=== PATIENT | female | born 1985 | race Caucasian/White ===

== ENCOUNTER 2016-07-18 10:28 | Emergency (ER) | payer MEDICAID ==
[~2016-07-18] VITALS: Wt 62.5 kg
[2016-07-18 11:42] LABS: URINE BLOOD (Dip) POC 3+ (NEGATIVE)
--- NOTE | 2016-07-18 12:19 | RADRPT ---
PROCEDURE: US Pelvis. CLINICAL INDICATION: Pain. TECHNIQUE: Multiple transabdominal and transvaginal sonographic images of the pelvis were obtained . COMPARISON: None. FINDINGS: The uterus is anteverted in position and measures 9.4 x 4.9 x 6.0 cm (144 cc). The endometrial comp aminata is homogeneous in echogenicity and measures approximately 10 mm in thickness. An intrauterine d evice is in place within the upper aspect of the endometrial cavity. Small Nabothian cysts are seen within the cervix. There is no free pelvic fluid. The right and left ovaries are symmetric in size with Doppler flow. The right ovary measures 3.0 x 2.0 x 2.5 cm (8 cc). The left ovary measures 3.0 x 1.9 x 1.9 cm (5.8 cc). IMPRESSION: Intrauterine device in satisfactory position within the endometrial cavity. Otherwise, unremarkable pelvic ultrasound. RPTAT: QQ .Josephine Llanos MD, MD Date Time Electronically viewed and signed by .Josephine Llanos MD, on 07/18/2016 12:19 .T/
[2016-07-18] MEDS ORDERED: METR500T PO (12:36)
[2016-07-18] MEDS ORDERED: NITR-58 PO (12:37)
--- NOTE | 2016-07-18 12:42 | ERD ---
ER Documentation Chief Complaint Date/Time DATE: 07/18/16 TIME: 12:39 Chief Complaint LOWER ABD PAIN, NAUSEA,BLOOD IN URINE HPI This is a 31-year-old female presents to the ER with pelvic pain that started 2 days ago. Patient states that pelvic pain is throbbing in quality. It is nonradiating. She does admit to urinary frequency and dysuria. She also admits to that she like yellow vaginal discharge. Patient is currently sexually active in a monogamous relationship. Patient uses protection. Patient is worried that her IUD is placed incorrectly. She denies any fevers or chills. She denies any other abdominal pain. She denies nausea vomiting or diarrhea. ROS 12 point review of systems was done, all negative except per HPI. Medications Home Meds Active Scripts Nitrofurantoin Monohyd Macrocr* (Macrobid*) 100 Mg Capsr, 100 MG PO BID for 7 Days, CAP Prov:ERIKA ARIZA 07/18/16 Metronidazole* (Flagyl*) 500 Mg Tablet, 500 MG PO TID for 7 Days, TAB Prov:ERIKA ARIZA 07/18/16 Physical Exam Vitals Vital Signs Date Time Temp Pulse Resp B/P Pulse Ox O2 Delivery O2 Flow Rate FiO2 07/18/16 10:31 99.9 78 18 132/85 98 Physical Exam GENERAL: The patient is well developed and appropriate for usual state of health , in no apparent distress. HEENT: Atraumatic. CHEST: Clear to auscultation bilaterally. There are no rales, wheezes or rhonchi. HEART: Regular rate and rhythm. No murmurs, clicks, rubs or gallops. ABDOMEN: Soft, nontender and nondistended. Good bowel sounds. No rebound or guarding. No gross peritonitis. No gross organomegaly or masses. No Somers sign or McBurney point tenderness. NEURO: Alert and oriented. SKIN: The skin is warm and dry. Results 24 hrs Laboratory Tests Test 07/18/16 10:46 Bedside Urine Blood 3+ Bedside Urine Glucose (UA) Negative Bedside Urine Ketones (LAB) Negative Bedside Urine Leukocyte Esterase (L 1+ Bedside Urine Nitrite (LAB) Negative Bedside Urine Protein (LAB) Negative Bedside Urine pH (LAB) 5.5 Procedures/MDM Differential diagnosis includes but is not limited to; UTI, ovarian cyst, ovarian torsion, tubo-ovarian abscess, pyelonephritis, kidney stone, bacterial vaginosis, UTI. This is a 31-year-old female presents to the ER with pain. At this time IUD is placed correctly. Patient did have evidence of urinary tract infection on urine dip. She also has a history consistent with bacterial vaginosis. Suspicion for pelvic inflammatory disease is low. Suspicion for tubo-ovarian abscess is low. She is afebrile and well-appearing. She does not have a history of previous STI's and has a monogamous relationship using protection. Patient's abdominal exam is benign. I doubt acute abdomen. Patient be sent home with metronidazole and with Macrobid. Patient needs to follow-up with her primary care doctor within 1-2 days return to ER sooner if symptoms worsen. My medical decision making was shared with the patient understands and agrees with plan Departure Diagnosis: Primary Impression: UTI (urinary tract infection) Additional Impression: Bacterial vaginosis Condition: Stable Patient Instructions: Understanding Urinary Tract Infections (UTIs) Additional Instructions: Llame al doctor MAANA y britt sam SAI PARA DENTRO DE 1-2 PALMER.Dgale a la secretaria que nosotros le instruimos hacer esta sai.Avise o llame si mittal condicin se empeora antes de la sai. Regresa aqui si peor o no mejor. ERIKA ARIZA Jul 18, 2016 12:42
== END 2016-07-18 13:01 | disposition home or self-care (01) ==
LOC: FTE 10:28
DX: N39.0 Urinary tract infection, site not specified (principal); N76.0 Acute vaginitis
CPT/HCPCS: 76830; 76856; 81003; Z7502

== ENCOUNTER 2016-12-13 16:00 | Emergency (ER) | payer MEDICAID ==
[~2016-12-13] VITALS: Ht 167.6 cm; Wt 62.0 kg
[~2016-12-13 16:00] MED LIST: METR500T PO; NITR-58 PO
[2016-12-13 16:07] VITALS: Ht 167.6 cm; Wt 62.0 kg
[2016-12-13] MEDS ORDERED: KETOROLAC 60 MG INJ IM STA (17:18)
[2016-12-13] MEDS ORDERED: FIORICET PO (18:35)
--- NOTE | 2016-12-13 19:04 | ERD ---
ER Documentation Chief Complaint Date/Time DATE: 12/13/16 TIME: 19:01 Chief Complaint Complains of severe headache x 3 days HPI 31-year-old female patient with no sniffing a past medical history presents to the ED complaining of a headache that started 3 days ago. Reports that it is predominantly in her right side of the head. States that she feels that she needs glasses. Denies any chest pain, shortness of breath, nausea, vomiting, dizziness, numbness or tingling. ROS All systems reviewed and are negative except as per history of present illness. Medications Home Meds Active Scripts Acetamin/Butalbital/Caffeine* (Fioricet*) [id number] Tab, 1 TAB PO Q6H Y for PAIN, #30 TAB Prov:SAY ARAUJO PA-C 12/13/16 Nitrofurantoin Monohyd Macrocr* (Macrobid*) 100 Mg Capsr, 100 MG PO BID for 7 Days, CAP Prov:ERIKA ARIZA C 07/18/16 Metronidazole* (Flagyl*) 500 Mg Tablet, 500 MG PO TID for 7 Days, TAB Prov:TO,ERIKA C 07/18/16 Allergies Allergies: Coded Allergies: No Known Allergy (Unverified , 12/13/16) PMhx/Soc Hx Alcohol Use: No Hx Substance Use: No Hx Tobacco Use: No Smoking Status: Never smoker Physical Exam Vitals Vital Signs Date Time Temp Pulse Resp B/P Pulse Ox O2 Delivery O2 Flow Rate FiO2 12/13/16 16:07 98.6 68 20 131/99 100 Physical Exam Const: [id number], well-nourished. In no acute distress. Head: Atraumatic, normocephalic Eyes: Normal Conjunctiva without injection. No purulent discharge. PERRLA. EOMI ENT: Normal external ear. Ear canal without erythema. Tympanic membrane pearly cohen without effusion or bulging. Nasal canal clear with normal turbinates. Moist oropharynx without tonsillar exudates. Non-erythematous pharynx. Uvula midline. No drooling. No trismus. Neck: No cervical midline tenderness. Full range of motion. No meningismus. No cervical lymphadenopathy. No JVD. Resp: Clear to auscultation bilaterally. No wheezing, rhonchi, rales, or crackles. No accessory muscle use. No retractions. Cardio: Regular rate and rhythm. No murmurs, rubs or gallops. Abd: Soft, non tender, non distended. Normal bowel sounds. No palpable masses. No rebound tenderness. No guarding. Negative McBurney's Point. Negative Somers's Sign. Skin: Normal skin turgor. No petechiae or rashes Back: No midline tenderness. No CVA tenderness. Ext: No cyanosis, or edema. Distal pulses intact bilaterally. Neur: Awake and alert. Normal gait. Normal coordination. Cranial Nerves II- VII intact. Normal finger to nose. Muscle strength 5/5. Sensation intact. Psych: Normal Mood and Affect Results 24 hrs Current Medications Medications (Trade) Dose Ordered Sig/Norma Route PRN Reason Start Time Stop Time Status Last Admin Dose Admin Ketorolac Tromethamine (Toradol) 60 mg ONCE STAT IM 12/13/16 17:18 12/13/16 17:19 DC 12/13/16 17:34 Procedures/MDM 31-year-old female patient with no significant past medical history presents to the ED complaining of headache that started days ago. Patient is afebrile and nontoxic-appearing. Patient has normal vital signs. Patient was given Toradol here in the ED with improvement of her symptoms. Urine is negative. Patient likely has a tension versus migraine headache. Low suspicion for intracranial bleed, subarachnoid hemorrhage, meningitis, TIA, stroke, epidural hematoma, subdural hematoma, or other emergent conditions. Discharge medications: Fioricet Follow up with primary care physician in 1-2 days. Instructed patient to return to the ED sooner for any worsening symptoms. Patient's questions were answered. Patient understood and agreed with discharge plan. Patient discharged stable. Departure Diagnosis: Primary Impression: Headache Headache type: unspecified Headache chronicity pattern: unspecified pattern Intractability: not intractable Qualified Code: R51 - Nonintractable headache, unspecified chronicity pattern, unspecified headache type Condition: Stable Patient Instructions: Self-Care for Headaches, Headache, Unspecified Referrals: COMMUNITY CLINICS YOU HAVE RECEIVED A MEDICAL SCREENING EXAM AND THE RESULTS INDICATE THAT YOU DO NOT HAVE A CONDITION THAT REQUIRES URGENT TREATMENT IN THE EMERGENCY DEPARTMENT. FURTHER EVALUATION AND TREATMENT OF YOUR CONDITION CAN WAIT UNTIL YOU ARE SEEN IN YOUR DOCTORS OFFICE WITHIN THE NEXT 1-2 DAYS. IT IS YOUR RESPONSIBILITY TO MAKE AN APPOINTMENT FOR FOLOW-UP CARE. IF YOU HAVE A PRIMARY DOCTOR --you should call your primary doctor and schedule an appointment IF YOU DO NOT HAVE A PRIMARY DOCTOR YOU CAN CALL OUR PHYSICIAN REFERRAL HOTLINE AT IF YOU CAN NOT AFFORD TO SEE A PHYSICIAN YOU CAN CHOSE FROM THE FOLLOWING [facility] [address] [facility] [address] [facility] [address] [facility] [address] [facility]. [facility] [address] [facility]. [facility] [address] [facility]. [facility] YOU HAVE RECEIVED A MEDICAL SCREENING EXAM AND THE RESULTS INDICATE THAT YOU DO NOT HAVE A CONDITION THAT REQUIRES URGENT TREATMENT IN THE EMERGENCY DEPARTMENT. FURTHER EVALUATION AND TREATMENT OF YOUR CONDITION CAN WAIT UNTIL YOU ARE SEEN IN YOUR DOCTORS OFFICE WITHIN THE NEXT 1-2 DAYS. IT IS YOUR RESPONSIBILITY TO MAKE AN APPOINTMENT FOR FOLOW-UP CARE. IF YOU HAVE A PRIMARY DOCTOR --you should call your primary doctor and schedule and appointment IF YOU DO NOT HAVE A PRIMARY DOCTOR YOU CAN CALL OUR PHYSICIAN REFERRAL HOTLINE AT . IF YOU CAN NOT AFFORD TO SEE A PHYSICIAN YOU CAN CHOSE FROM THE FOLLOWING [facility]: [facility] [address] [place] [address] [facility] [address] [place] [address] [facility] [address] [place] [address] [facility] URGENT CARE/SPECIALTIES Additional Instructions: Llame al doctor MAANA y britt sam SAI PARA DENTRO DE 1-2 PALMER.Dgale a la secretaria que nosotros le instruimos hacer esta sai.Avise o llame si mittal condicin se empeora antes de la sai. Regresa aqui si peor o no mejor. Obtener ms evaluacin de un optometrista/oftalmlogo. SAY ARAUJO PA-C Dec 13, 2016 19:04
== END 2016-12-13 18:50 | disposition home or self-care (01) ==
LOC: FTE 16:00
DX: R51 Headache (principal)
CPT/HCPCS: 96372; J1885; Z7502